=== PATIENT | female | born 1970 | race Native Hawaiian/Other Pacific Islander ===

== ENCOUNTER 2021-01-24 06:35 | Day surgery (SDC) | payer OTHER ==
[~2021-01-24] VITALS: Ht 147.3 cm; Wt 69.4 kg
[2021-01-24] MEDS ORDERED: LIDOCAINE 2% 100 MG/5 ML UJET TP ONE ×2 (07:52→08:35)
[2021-01-24] MEDS ORDERED: fentaNYL citrate 0.05 MG/ML VIAL ONE (07:52)
[2021-01-24] MEDS ORDERED: MIDAZOLAM 5 MG/5 ML VIAL ONE (07:52)
[2021-01-24] MEDS ORDERED: MIDAZOLAM 2 MG/2 ML VIAL IVP ONE (08:35)
[2021-01-24] MEDS ORDERED: fentaNYL citrate 0.05 MG/ML VIAL IVP ONE (08:40)
== END 2021-01-24 09:20 | disposition home or self-care (01) ==
LOC: MDS 06:35 → MMU 06:38 → MDS 09:20
PROVIDERS: ATTEND Internal Medicine Gastroenterology
DX: K62.5 Hemorrhage of anus and rectum (principal); K29.50 Unspecified chronic gastritis without bleeding; Z88.2 Allergy status to sulfonamides; K21.9 Gastro-esophageal reflux disease without esophagitis; E66.9 Obesity, unspecified
CPT/HCPCS: 36415; 43239; 45378; 86677; J2250; J3010